=== PATIENT | female | born 1940 ===

== ENCOUNTER 2017-09-24 17:10 | Inpatient (IN) | payer MEDICARE, MEDICAID ==
[2017-09-24 17:11] VITALS: BMI 26.7
--- NOTE | 2017-09-24 18:02 | ED PDOC ---
HPI: Altered Mental Status Time Seen by Provider: 09/24/17 17:27 Chief Complaint (Nursing): Weakness/Neurological Deficit Chief Complaint (Provider): Weakness History Per: Patient History/Exam Limitations: None Onset/Duration Of Symptoms: Days (1) Current Symptoms Are (Timing): Still Present Description Of Symptoms: Not At Baseline Usual Baseline: Alert Oriented Exacerbating Factor(s): Unknown Character Of Deficits: Left: Weakness, Right: Weakness, Arm: Weakness, Leg: Weakness Decreased Ability To: Stand, Walk Severity: Mild Pain Scale Rating Of: 0 Additional History Per: Patient Associated Symptoms: Weakness. denies: Fever, Chills, Sweating, Chest Pain, Neck Pain, Back Pain, Headache, Seizure, Disoriented, Confused, Agitated, Trouble Concentrating, Trouble Thinking, Not Eating, Not Drinking, Vomiting, Diarrhea, Dyspnea, Incontinence, Syncope, Combative, Falling, Unable To: Additional Complaint(s): This is a 76 yo female with PMH of HTN, Hypothyrodism, Osteoporisis, colitis present today due to weakness that started this morning, PT state that the weakeness started on her left leg while she was in the urinal, and then she felt it in all her body. Pt state that its symmetrical and on upper and lower limbs. Pt state she is also having urinary retention for the past week. Pt sate the doctor change her thyriod medication las month. Pt denies dizzines, headache , loss of sensation, los of motor movement, change in vision, Nausea, vomiting, chest pain, SOB, abdominal pain, diarrhea, poluria, dysuria, or any other finding Past Medical History Reviewed: Historical Data, Nursing Documentation, Vital Signs Vital Signs: Last Vital Signs Temp 95 F L 09/24/17 17:16 Pulse 62 09/24/17 17:16 Resp 18 09/24/17 17:16 BP 143/73 09/24/17 17:16 Pulse Ox 96 09/24/17 17:16 - Medical History PMH: Arthritis, Asthma, HTN, Osteoporosis Denies: Diabetes, Hypercholesterolemia, Chronic Kidney Disease - Surgical History Surgical History: Back Surgery, Cholecystectomy - Family History Family History: States: Unknown Family Hx - Living Arrangements Living Arrangements: Alone - Social History Current smoker - smoking cessation education provided: No Ex-Smoker (has not smoked in the last 12 months): No Alcohol: None - Home Medications Home Medications: Ambulatory Orders Medication Instructions Recorded Acetaminophen/Oxycodone Hydr 1 tab PO TID PRN #6 tab 11/16/13 [Percocet 325 mg-5 mg] Meloxicam 15 mg PO PRN 11/16/13 Patient's Own Injectable 11/16/13 [Patient's Own Injectable] Ranitidine HCl [Ranitidine] PO BID 11/16/13 Tramadol Hydrochloride [Tramadol] 50 mg PO DAILY 11/16/13 amLODIPine [Norvasc] 10 mg PO DAILY 11/16/13 - Allergies Allergies/Adverse Reactions: Allergies Allergy/AdvReac Type Severity Reaction Status Date / Time Penicillins Allergy SWELLING Verified 09/24/17 17:16 Review of Systems ROS Statement: Except As Marked, All Systems Reviewed And Found Negative Constitutional: Positive for: Weakness. Negative for: Fever, Chills, Sweats Cardiovascular: Positive for: Palpitations. Negative for: Chest Pain Respiratory: Negative for: Shortness of Breath, SOB with Exertion Gastrointestinal: Negative for: Nausea, Vomiting, Abdominal Pain, Diarrhea Genitourinary Female: Positive for: Other (urin retention). Negative for: Dysuria, Frequency Neurological: Positive for: Weakness. Negative for: Numbness, Incoordination, Change in Speech, Confusion, Seizures, Altered Mental Status, Dizziness Psych: Negative for: Anxiety, Depression Physical Exam - Reviewed Nursing Documentation Reviewed: Yes Vital Signs Reviewed: Yes - Physical Exam Appears: Positive for: Well, Non-toxic, No Acute Distress Head Exam: Positive for: ATRAUMATIC, NORMAL INSPECTION, NORMOCEPHALIC Skin: Positive for: Normal Color, Dry Eye Exam: Positive for: Other (strabismo on R eye ) Neck: Positive for: Normal Cardiovascular/Chest: Positive for: Regular Rate, Rhythm Respiratory: Positive for: Normal Breath Sounds. 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 Issa Disposition - Disposition Forms: [employer] ([place])
[2017-09-24 19:08] LABS: BASO # 0.1 K/uL (0.0-0.2); BASO % 0.7 % (0.0-2.0); EOS # 0.4 K/uL (0.0-0.7); HEMOGLOBIN 13.6 g/dL (12.0-16.0); LYMPH # 1.9 K/uL (1.0-4.3); LYMPH % 21.2 % (20.0-40.0); MEAN CELL VOLUME 87.5 fl (81.0-99.0); MEAN CORPUSCULAR HEMOGLOBIN 28.9 pg (27.0-31.0); MEAN CORPUSCULAR HGB CONC 33.1 g/dL (33.0-37.0); MEAN PLATELET VOLUME 9.4 fl (7.2-11.7); MONO # 0.8 K/uL (0.0-0.8); MONO % 8.8 % (0.0-10.0); NEUT # 5.8 K/uL (1.8-7.0); NEUT % 65.3 % (50.0-75.0); RBC 4.69 Mil/uL (3.80-5.20); RED CELL DISTRIBUTION WIDTH 14.8 % (11.5-14.5)
[2017-09-24 19:41] LABS: CALCIUM 8.8 mg/dL (8.4-10.2); GFR AFRICAN-AMERICAN > 60; GFR NON-AFRICAN AMERICAN > 60
[2017-09-24 20:16] LABS: ALB/GLOB RATIO 1.1 (1.0-2.1); ALBUMIN 4.4 g/dL (3.5-5.0); ALT/SGPT 8 U/L (9-52); AST/SGOT 81 U/L (14-36); BLOOD UREA NITROGEN 15 mg/dl (7-17)
[2017-09-24 20:29] LABS: SQUAMOUS EPITHIAL < 1 /hpf (0-5); URINE BILIRUBIN NEGATIVE (NEGATIVE); URINE BLOOD NEGATIVE (NEGATIVE); URINE CLARITY CLEAR (Clear); URINE COLOR STRAW (YELLOW); URINE GLUCOSE (UA) NEG (Normal); URINE LEUKOCYTE ESTERASE NEG Leu/uL (Negative); URINE PROTEIN NEGATIVE (NEGATIVE); URINE UROBILINOGEN 0.2-1.0 mg/dL (0.2-1.0)
[2017-09-25] MEDS ORDERED: Albuterol HFA 90 mcg/actuation (8 g) INH PRN (06:27)
[2017-09-25 08:03] LABS: BASO % 0.5 % (0.0-2.0); EOS # 0.6 K/uL (0.0-0.7); EOS % 7.4 % (0.0-4.0); HEMOGLOBIN 12.9 g/dL (12.0-16.0); LYMPH # 2.4 K/uL (1.0-4.3); LYMPH % 30.4 % (20.0-40.0); MEAN CELL VOLUME 87.3 fl (81.0-99.0); MEAN CORPUSCULAR HEMOGLOBIN 29.2 pg (27.0-31.0); MEAN CORPUSCULAR HGB CONC 33.4 g/dL (33.0-37.0); MEAN PLATELET VOLUME 9.4 fl (7.2-11.7); MONO # 0.8 K/uL (0.0-0.8); MONO % 10.3 % (0.0-10.0); NEUT # 4.2 K/uL (1.8-7.0); NEUT % 51.4 % (50.0-75.0); NRBC % 0.2 % (0.0-0.0); RBC 4.42 Mil/uL (3.80-5.20); RED CELL DISTRIBUTION WIDTH 14.6 % (11.5-14.5); WHITE BLOOD COUNT 8.1 K/uL (4.8-10.8)
--- NOTE | 2017-09-25 08:07 | CP.PCM.HP ---
History of Present Illness - History of Present Illness History of Present Illness: pt admitted for weakness and diffuse joint pain. has h/o osteoporosis and OA. no f/c, n/v/d. no cough/congestion. all bw noted. pending final ct head report. nocp, dyspnea, headache. Present on Admission - Present on Admission Any Indicators Present on Admission: No Review of Systems - Musculoskeletal Musculoskeletal: As Per HPI, Arthralgias - Neurological Neurological: As Per HPI, Weakness Past Patient History - Past Medical History & Family History Past Medical History?: Yes - Past Social History Smoking Status: Never Smoked - CARDIAC Hx Cardiac Disorders: Yes Hx Hypercholesterolemia: No Hx Hypertension: Yes - PULMONARY Hx Respiratory Disorders: Yes Hx Asthma: Yes - NEUROLOGICAL Hx Neurological Disorder: No - HEENT Hx HEENT Problems: Yes Other/Comment: RIGHT EYE TENDON INVERTION - RENAL Hx Chronic Kidney Disease: No - ENDOCRINE/METABOLIC Hx Endocrine Disorders: No - HEMATOLOGICAL/ONCOLOGICAL Hx Blood Disorders: No - INTEGUMENTARY Hx Dermatological Problems: No - MUSCULOSKELETAL/RHEUMATOLOGICAL Hx Musculoskeletal Disorders: No Hx Falls: No - GASTROINTESTINAL Hx Gastrointestinal Disorders: No - GENITOURINARY/GYNECOLOGICAL Hx Genitourinary Disorders: No - PSYCHIATRIC Hx Psychophysiologic Disorder: No Hx Substance Use: No - SURGICAL HISTORY Hx Surgeries: Yes Hx Cholecystectomy: Yes - ANESTHESIA Hx Anesthesia: Yes Hx Anesthesia Reactions: No Hx Malignant Hyperthermia: No Meds Allergies/Adverse Reactions: Allergies Allergy/AdvReac Type Severity Reaction Status Date / Time Penicillins Allergy SWELLING Verified 09/24/17 17:16 Physical Exam - Constitutional Appears: Non-toxic, No Acute Distress, Chronically Ill - Head Exam Head Exam: ATRAUMATIC, NORMAL INSPECTION, NORMOCEPHALIC - Eye Exam Eye Exam: EOMI, Normal appearance, PERRL Pupil Exam: NORMAL ACCOMODATION, PERRL - ENT Exam ENT Exam: Mucous Membranes Moist, Normal Exam - Neck Exam Neck exam: Positive for: Normal Inspection - Respiratory Exam Respiratory Exam: Clear to Auscultation Bilateral, NORMAL BREATHING PATTERN - Cardiovascular Exam Cardiovascular Exam: REGULAR RHYTHM, RRR, +S1, +S2 - GI/Abdominal Exam GI & Abdominal Exam: Normal Bowel Sounds, Soft. absent: Tenderness - Extremities Exam Extremities exam: Positive for: full ROM, normal capillary refill, normal inspection, pedal pulses present - Back Exam Back exam: NORMAL INSPECTION - Neurological Exam Neurological exam: Abnormal Gait, Alert, CN II-XII Intact, Oriented x3, Reflexes Normal - Psychiatric Exam Psychiatric exam: Normal Affect, Normal Mood - Skin Skin Exam: Dry, Intact, Normal Color, Warm Results - Vital Signs Recent Vital Signs: Last Vital Signs Temp 98.4 F 09/25/17 00:59 Pulse 66 09/25/17 00:59 Resp 18 09/25/17 00:59 BP 118/72 09/25/17 00:59 Pulse Ox 98 09/25/17 00:59 - Labs Result Diagrams: 09/24/17 19:03 09/24/17 19:03 Labs: Laboratory Results - last 24 hr 09/24/17 09/24/17 09/24/17 18:44 19:03 19:03 WBC 9.0 RBC 4.69 Hgb 13.6 Hct 41.0 MCV 87.5 D MCH 28.9 MCHC 33.1 RDW 14.8 H Plt Count 299 MPV 9.4 Neut % (Auto) 65.3 Lymph % (Auto) 21.2 [place] % (Auto) 8.8 Eos % (Auto) 4.0 Baso % (Auto) 0.7 Neut # (Auto) 5.8 Lymph # (Auto) 1.9 [place] # (Auto) 0.8 Eos # (Auto) 0.4 Baso # (Auto) 0.1 Sodium 143 Potassium 4.3 Chloride 105 Carbon Dioxide 29 Anion Gap 13 BUN 15 Creatinine 0.3 L Est GFR ( Amer) > 60 Est GFR (Non-Af Amer) > 60 POC Glucose (mg/dL) 78 Random Glucose 83 Calcium 8.8 Total Bilirubin 1.0 AST 81 H ALT 8 L D Alkaline Phosphatase 88 Total Protein 8.4 H Albumin 4.4 Globulin 4.0 H Albumin/Globulin Ratio 1.1 TSH 3rd Generation 0.89 Urine Color Urine Clarity Urine pH Ur Specific [place] Urine Protein Urine Glucose (UA) Urine Ketones Urine Blood Urine Nitrate Urine Bilirubin Urine Urobilinogen Ur Leukocyte Esterase Urine RBC (Auto) Ur Squamous Epith Cells 09/24/17 20:21 WBC RBC Hgb Hct MCV MCH MCHC RDW Plt Count MPV Neut % (Auto) Lymph % (Auto) [place] % (Auto) Eos % (Auto) Baso % (Auto) Neut # (Auto) Lymph # (Auto) [place] # (Auto) Eos # (Auto) Baso # (Auto) Sodium Potassium Chloride Carbon Dioxide Anion Gap BUN Creatinine Est GFR ( Amer) Est GFR (Non-Af Amer) POC Glucose (mg/dL) Random Glucose Calcium Total Bilirubin AST ALT Alkaline Phosphatase Total Protein Albumin Globulin Albumin/Globulin Ratio TSH 3rd Generation Urine Color Straw Urine Clarity Clear Urine pH 8.0 Ur Specific [place] 1.009 Urine Protein Negative Urine Glucose (UA) Neg Urine Ketones Trace Urine Blood Negative Urine Nitrate Negative Urine Bilirubin Negative Urine Urobilinogen 0.2-1.0 Ur Leukocyte Esterase Neg Urine RBC (Auto) < 1 Ur Squamous Epith Cells < 1 Assessment & Plan (1) Weakness Assessment and Plan: pt/ot moniotr bw f/u head ct sergio?? Status: Acute (2) DVT prophylaxis Assessment and Plan: scd nad aeh ose ambulation lovenox if admitted over 24h Status: Acute Decision To Admit - Pt Status Changed To: Hospital Disposition Of: Inpatient - Admit Certification Admit to Inpatient:: After my assessment, the patient will require hospitalization for at least two midnights. This is because of the severity of symptoms shown, intensity of services needed, and/or the medical risk in this patient being treated as an outpatient. - . Bed Request Type: Med/Surg Admitting Physician: Cherelle Gerber
[2017-09-25] MEDS: Naproxen 500 MG TAB PO SCH ×2 (09:00→16:47)
--- NOTE | 2017-09-25 09:18 | CT ---
PROCEDURE: CT HEAD WITHOUT CONTRAST. HISTORY: Generalized weakness, lightheadedness COMPARISON: CT head dated 11/08/2013. TECHNIQUE: Axial computed tomography images were obtained through the head/brain without intravenous contrast. Radiation dose: Total exam DLP = 1273.4 mGy-cm. This CT exam was performed using one or more of the following dose reduction techniques: Automated exposure control, adjustment of the mA and/or kV according to patient size, and/or use of iterative reconstruction technique. FINDINGS: HEMORRHAGE: No intracranial hemorrhage. BRAIN: No mass effect or edema. Mild atrophy. Mild chronic microvascular ischemic changes. VENTRICLES: Mildly prominent. No hydrocephalus. CALVARIUM: Unremarkable. PARANASAL SINUSES: Unremarkable as visualized. Bilateral diana bullosa. No significant inflammatory changes. MASTOID AIR CELLS: Unremarkable as visualized. No inflammatory changes. OTHER FINDINGS: None. IMPRESSION: No acute intracranial pathology. Age-related changes.
[2017-09-25 09:35] LABS: ALB/GLOB RATIO 1.1 (1.0-2.1); ALBUMIN 3.8 g/dL (3.5-5.0); ALT/SGPT 20 U/L (9-52); AST/SGOT 25 U/L (14-36); BLOOD UREA NITROGEN 12 mg/dl (7-17); CALCIUM 8.3 mg/dL (8.4-10.2); GFR AFRICAN-AMERICAN > 60; GFR NON-AFRICAN AMERICAN > 60
[2017-09-25] MEDS ORDERED: Potassium Chloride 20 mEq ER Tab PO ONE (10:22)
[2017-09-25] MEDS: Pantoprazole 40 mg EC Tab PO SCH (13:39)
[2017-09-26] MEDS: Levothyroxine 50 MCG TAB PO SCH (05:49)
[2017-09-26 07:51] LABS: BASO % 0.4 % (0.0-2.0); EOS # 0.7 K/uL (0.0-0.7); EOS % 6.8 % (0.0-4.0); LYMPH # 2.6 K/uL (1.0-4.3); MEAN CORPUSCULAR HGB CONC 33.4 g/dL (33.0-37.0); MONO % 10.4 % (0.0-10.0); NEUT # 5.4 K/uL (1.8-7.0); NEUT % 55.4 % (50.0-75.0); RBC 4.48 Mil/uL (3.80-5.20); RED CELL DISTRIBUTION WIDTH 14.6 % (11.5-14.5); WHITE BLOOD COUNT 9.7 K/uL (4.8-10.8)
[2017-09-26 08:13] LABS: ALB/GLOB RATIO 1.1 (1.0-2.1); ALBUMIN 3.7 g/dL (3.5-5.0); ALT/SGPT 17 U/L (9-52); AST/SGOT 27 U/L (14-36); BLOOD UREA NITROGEN 23 mg/dl (7-17); CALCIUM 8.4 mg/dL (8.4-10.2); GFR AFRICAN-AMERICAN > 60; GFR NON-AFRICAN AMERICAN > 60
[2017-09-26] MEDS: Naproxen 500 MG TAB PO SCH ×2 (08:36→16:34)
[2017-09-26] MEDS: Pantoprazole 40 mg EC Tab PO SCH (08:37)
--- NOTE | 2017-09-26 09:59 | CP.PCM.PN ---
Subjective - Date & Time of Evaluation Date of Evaluation: 09/26/17 Time of Evaluation: 09:58 - Subjective Subjective: pt doing well. no complaints. pain controlled w/ po meds. 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 Objective - Vital Signs/Intake and Output Vital Signs (last 24 hours): Temp Pulse Resp BP Pulse Ox 97.3 F L 74 20 119/69 98 09/26/17 08:12 09/26/17 08:37 09/26/17 08:12 09/26/17 08:37 09/26/17 08:12 - Medications Medications: Current Medications Acetaminophen (Tylenol 325mg Tab) 325 mg PO Q6 PRN PRN Reason: Pain, Mild (1-3) Last Admin: 09/26/17 05:48 Dose: 325 mg Albuterol (Ventolin Hfa 90 Mcg/Actuation (8 G)) 1 puff INH Q4 PRN PRN Reason: Wheezing Amlodipine Besylate (Norvasc) 10 mg PO DAILY [facility] Last Admin: 09/26/17 08:37 Dose: 10 mg Famotidine (Pepcid) 20 mg PO BID [facility] Last Admin: 09/26/17 08:37 Dose: 20 mg Famotidine (Pepcid) 20 mg PO DAILY [facility] Last Admin: 09/26/17 08:38 Dose: Not Given Levothyroxine Sodium (Synthroid) 50 mcg PO DAILY@0630 [facility] Last Admin: 09/26/17 05:49 Dose: 50 mcg Mesalamine (Delzicol Dr) 1,200 mg PO DAILY [facility] Last Admin: 09/26/17 08:36 Dose: 1,200 mg Naproxen (Naproxen) 500 mg PO BID [facility] Last Admin: 09/26/17 08:36 Dose: 500 mg Pantoprazole Sodium (Protonix Ec Tab) 40 mg PO DAILY [facility] Last Admin: 09/26/17 08:37 Dose: 40 mg - Labs Labs: 09/26/17 05:30 09/26/17 05:30 - Constitutional Appears: Well, Non-toxic, No Acute Distress - Head Exam Head Exam: ATRAUMATIC, NORMAL INSPECTION, NORMOCEPHALIC - Eye Exam Eye Exam: EOMI, Normal appearance, PERRL Pupil Exam: NORMAL ACCOMODATION, PERRL - ENT Exam ENT Exam: Mucous Membranes Moist, Normal Exam - Neck Exam Neck Exam: Full ROM, Normal Inspection. absent: Lymphadenopathy - Respiratory Exam Respiratory Exam: Clear to Ausculation Bilateral, NORMAL BREATHING PATTERN - Cardiovascular Exam Cardiovascular Exam: REGULAR RHYTHM, +S1, +S2. absent: Murmur - GI/Abdominal Exam GI & Abdominal Exam: Soft, Normal Bowel Sounds. absent: Tenderness - Extremities Exam Extremities Exam: Full ROM, Normal Capillary Refill, Normal Inspection. absent : Joint Swelling, Pedal Edema - Back Exam Back Exam: NORMAL INSPECTION - Neurological Exam Neurological Exam: Alert, Awake, CN II-XII Intact, Normal Gait, Oriented x3 - Psychiatric Exam Psychiatric exam: Normal Affect, Normal Mood - Skin Skin Exam: Dry, Intact, Normal Color, Warm Assessment and Plan (1) Weakness Status: Acute (2) DVT prophylaxis Status: Acute - Assessment and Plan (Free Text) Assessment: (1) Weakness Assessment and Plan: pt/ot moniotr bw f/u head ct sergio?? pt refusingas ofnow Status: Acute (2) DVT prophylaxis Assessment and Plan: scd nad aeh ose ambulation lovenox if admitted over 24h Status: Acute
[2017-09-27 01:09] VITALS: RESP 18
[2017-09-27] MEDS: Levothyroxine 50 MCG TAB PO SCH (05:48)
--- NOTE | 2017-09-27 07:48 | CP.PCM.PN ---
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 [facility] Objective - Vital Signs/Intake and Output Vital Signs (last 24 hours): Temp Pulse Resp BP Pulse Ox 97.7 F 60 18 111/69 97 09/27/17 00:00 09/27/17 00:00 09/27/17 00:00 09/27/17 00:00 09/27/17 00:00 - Medications Medications: Current Medications Acetaminophen (Tylenol 325mg Tab) 325 mg PO Q6 PRN PRN Reason: Pain, Mild (1-3) Last Admin: 09/26/17 22:42 Dose: 325 mg Albuterol (Ventolin Hfa 90 Mcg/Actuation (8 G)) 1 puff INH Q4 PRN PRN Reason: Wheezing Amlodipine Besylate (Norvasc) 10 mg PO DAILY [facility] Last Admin: 09/26/17 08:37 Dose: 10 mg Famotidine (Pepcid) 20 mg PO BID [facility] Last Admin: 09/26/17 16:35 Dose: 20 mg Famotidine (Pepcid) 20 mg PO DAILY [facility] Last Admin: 09/26/17 08:38 Dose: Not Given Levothyroxine Sodium (Synthroid) 50 mcg PO DAILY@0630 [facility] Last Admin: 09/27/17 05:48 Dose: 50 mcg Mesalamine (Delzicol Dr) 1,200 mg PO DAILY [facility] Last Admin: 09/26/17 08:36 Dose: 1,200 mg Naproxen (Naproxen) 500 mg PO BID [facility] Last Admin: 09/26/17 16:34 Dose: 500 mg Pantoprazole Sodium (Protonix Ec Tab) 40 mg PO DAILY [facility] Last Admin: 09/26/17 08:37 Dose: 40 mg - Labs Labs: 09/26/17 05:30 09/26/17 05:30 - Constitutional Appears: Well, Non-toxic, No Acute Distress - Head Exam Head Exam: ATRAUMATIC, NORMAL INSPECTION, NORMOCEPHALIC - Eye Exam Eye Exam: EOMI, Normal appearance, PERRL Pupil Exam: NORMAL ACCOMODATION, PERRL - ENT Exam ENT Exam: Mucous Membranes Moist, Normal Exam - Neck Exam Neck Exam: Full ROM, Normal Inspection. absent: Lymphadenopathy - Respiratory Exam Respiratory Exam: Clear to Ausculation Bilateral, NORMAL BREATHING PATTERN - Cardiovascular Exam Cardiovascular Exam: REGULAR RHYTHM, RRR, +S1, +S2. absent: Murmur - GI/Abdominal Exam GI & Abdominal Exam: Soft, Normal Bowel Sounds. absent: Tenderness - Extremities Exam Extremities Exam: Full ROM, Normal Capillary Refill, Normal Inspection. absent : Joint Swelling, Pedal Edema - Back Exam Back Exam: NORMAL INSPECTION - Neurological Exam Neurological Exam: Abnormal Gait, Alert, Awake, CN II-XII Intact, Oriented x3 - Psychiatric Exam Psychiatric exam: Normal Affect, Normal Mood - Skin Skin Exam: Dry, Intact, Normal Color, Warm Assessment and Plan (1) Weakness Status: Acute (2) DVT prophylaxis Status: Acute - Assessment and Plan (Free Text) Assessment: (1) Weakness Assessment and Plan: pt/ot moniotr bw f/u head ct sergio?? pt refusingas ofnow Status: Acute (2) DVT prophylaxis Assessment and Plan: scd nad aeh ose ambulation lovenox if admitted over 24h Status: Acute 3-unsteady gait-pt has appliances/crutches at home. requesting to go home instead of sergio/tcu sw/cm to follow
[2017-09-27 08:02] VITALS: BP 146/74; PULSE 56; TEMP 97.8; O2SAT 100
[2017-09-27] MEDS: Naproxen 500 MG TAB PO SCH (09:09)
[2017-09-27] MEDS: Pantoprazole 40 mg EC Tab PO SCH (09:10)
--- NOTE | 2017-09-27 10:23 | CARD ---
APPROVED REPORT EKG Measurement Heart [id number] <Conclusion> Sinus bradycardia Moderate voltage criteria for LVH, may be normal variant Borderline ECG
--- NOTE | 2017-09-27 13:23 | CP.PCM.CON ---
History of Present Illness - History of Present Illness History of Present Illness: 76 yr old woman who was born with spina bifida, now admitted for weakness and diffuse joint pain. She has a pmh of osteoporosis and osteoarthritis. TOday, MIss hair states that she has no headache,no weakness, no nausea, no vomiting, no difficulty finding words. There are no other complaints. She does not see a neurologist. PMH/PSH: as above. FH/SH: as above. Has good family support. ALl: nkda. on exam: aaox3. 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 eomi. cn 2-12 normal. lower limbs are atrophied and small for size. Profound lower limb weakness at 2/5 bilaterally. upper limbs 5/5. Reflexes are +2 ul and ll bl. toes downgoing. no clonus. patient does not walk but needs a walker. MMS: Past Patient History - Past Medical History & Family History Past Medical History?: Yes - Past Social History Smoking Status: Never Smoked - CARDIAC Hx Cardiac Disorders: Yes Hx Hypercholesterolemia: No Hx Hypertension: Yes - PULMONARY Hx Respiratory Disorders: Yes Hx Asthma: Yes - NEUROLOGICAL Hx Neurological Disorder: No - HEENT Hx HEENT Problems: Yes Other/Comment: RIGHT EYE TENDON INVERTION - RENAL Hx Chronic Kidney Disease: No - ENDOCRINE/METABOLIC Hx Endocrine Disorders: No - HEMATOLOGICAL/ONCOLOGICAL Hx Blood Disorders: No - INTEGUMENTARY Hx Dermatological Problems: No - MUSCULOSKELETAL/RHEUMATOLOGICAL Hx Musculoskeletal Disorders: No Hx Falls: No - GASTROINTESTINAL Hx Gastrointestinal Disorders: No - GENITOURINARY/GYNECOLOGICAL Hx Genitourinary Disorders: No - PSYCHIATRIC Hx Psychophysiologic Disorder: No Hx Substance Use: No - SURGICAL HISTORY Hx Surgeries: Yes Hx Cholecystectomy: Yes - ANESTHESIA Hx Anesthesia: Yes Hx Anesthesia Reactions: No Hx Malignant Hyperthermia: No Meds Home Medications: Home Medication List Medication Instructions Recorded Confirmed Type Famotidine [Pepcid] 20 mg PO BID #60 tab 09/27/17 Rx Allergies/Adverse Reactions: Allergies Allergy/AdvReac Type Severity Reaction Status Date / Time Penicillins Allergy SWELLING Verified 09/24/17 17:16 - Medications Medications: Current Medications Acetaminophen (Tylenol 325mg Tab) 325 mg PO Q6 PRN PRN Reason: Pain, Mild (1-3) Last Admin: 09/26/17 22:42 Dose: 325 mg Albuterol (Ventolin Hfa 90 Mcg/Actuation (8 G)) 1 puff INH Q4 PRN PRN Reason: Wheezing Amlodipine Besylate (Norvasc) 10 mg PO DAILY [facility] Last Admin: 09/27/17 09:09 Dose: 10 mg Famotidine (Pepcid) 20 mg PO BID [facility] Last Admin: 09/27/17 09:10 Dose: 20 mg Famotidine (Pepcid) 20 mg PO DAILY [facility] Last Admin: 09/27/17 09:10 Dose: Not Given Levothyroxine Sodium (Synthroid) 50 mcg PO DAILY@0630 [facility] Last Admin: 09/27/17 05:48 Dose: 50 mcg Mesalamine (Delzicol Dr) 1,200 mg PO DAILY [facility] Last Admin: 09/27/17 09:09 Dose: 1,200 mg Naproxen (Naproxen) 500 mg PO BID [facility] Last Admin: 09/27/17 09:09 Dose: 500 mg Pantoprazole Sodium (Protonix Ec Tab) 40 mg PO DAILY [facility] Last Admin: 09/27/17 09:10 Dose: 40 mg Results - Vital Signs Recent Vital Signs: Last Vital Signs Temp 97.8 F 09/27/17 08:01 Pulse 56 L 09/27/17 09:09 Resp 18 09/27/17 08:01 BP 146/74 09/27/17 09:09 Pulse Ox 100 09/27/17 08:01 - Labs Result Diagrams: 09/26/17 05:30 09/26/17 05:30 Assessment & Plan - Assessment and Plan (Free Text) Assessment: 76 yr old woman with spina bifida who is now stable with no neurological complaints. Plan: 1. Discharge home with neurology follow up. Thank you Dr. breen
--- NOTE | 2017-09-27 15:50 | CP.PCM.DIS ---
Provider - Provider Date of Admission: 09/24/17 20:50 Attending physician: Cherelle Gerber MD Time Spent in preparation of Discharge (in minutes): 15 Diagnosis - Discharge Diagnosis (1) Weakness Status: Acute (2) DVT prophylaxis Status: Acute Hospital Course - Lab Results Lab Results: Most Recent Lab Values WBC 9.7 K/uL (4.8-10.8) 09/26/17 05:30 RBC 4.48 Mil/uL (3.80-5.20) 09/26/17 05:30 Hgb 13.0 g/dL (12.0-16.0) 09/26/17 05:30 Hct 39.0 % (34.0-47.0) 09/26/17 05:30 MCV 87.0 fl (81.0-99.0) 09/26/17 05:30 MCH 29.0 pg (27.0-31.0) 09/26/17 05:30 MCHC 33.4 g/dL (33.0-37.0) 09/26/17 05:30 RDW 14.6 % (11.5-14.5) H 09/26/17 05:30 Plt Count 266 K/uL (130-400) 09/26/17 05:30 MPV 10.0 fl (7.2-11.7) 09/26/17 05:30 Neut % (Auto) 55.4 % (50.0-75.0) 09/26/17 05:30 Lymph % (Auto) 27.0 % (20.0-40.0) 09/26/17 05:30 Teller % (Auto) 10.4 % (0.0-10.0) H 09/26/17 05:30 Eos % (Auto) 6.8 % (0.0-4.0) H 09/26/17 05:30 Baso % (Auto) 0.4 % (0.0-2.0) 09/26/17 05:30 Neut # (Auto) 5.4 K/uL (1.8-7.0) 09/26/17 05:30 Lymph # (Auto) 2.6 K/uL (1.0-4.3) 09/26/17 05:30 Teller # (Auto) 1.0 K/uL (0.0-0.8) H 09/26/17 05:30 Eos # (Auto) 0.7 K/uL (0.0-0.7) 09/26/17 05:30 Baso # (Auto) 0.0 K/uL (0.0-0.2) 09/26/17 05:30 Sodium 140 mmol/l (132-148) 09/26/17 05:30 Potassium 4.1 MMOL/L (3.6-5.0) 09/26/17 05:30 Chloride 105 mmol/L (98-107) 09/26/17 05:30 Carbon Dioxide 25 mmol/L (22-30) 09/26/17 05:30 Anion Gap 14 (10-20) 09/26/17 05:30 BUN 23 mg/dl (7-17) H 09/26/17 05:30 Creatinine 0.3 mg/dl (0.7-1.2) L 09/26/17 05:30 Est GFR ( Amer) > 60 09/26/17 05:30 Est GFR (Non-Af Amer) > 60 09/26/17 05:30 POC Glucose (mg/dL) 78 mg/dL (65-110) 09/24/17 18:44 Random Glucose 89 mg/dL (65-105) 09/26/17 05:30 Calcium 8.4 mg/dL (8.4-10.2) 09/26/17 05:30 Total Bilirubin 0.9 mg/dl (0.2-1.3) 09/26/17 05:30 AST 27 U/L (14-36) 09/26/17 05:30 ALT 17 U/L (9-52) 09/26/17 05:30 Alkaline Phosphatase 61 U/L (38-126) 09/26/17 05:30 Total Protein 7.1 G/DL (6.3-8.2) 09/26/17 05:30 Albumin 3.7 g/dL (3.5-5.0) 09/26/17 05:30 Globulin 3.5 gm/dL (2.2-3.9) 09/26/17 05:30 Albumin/Globulin Ratio 1.1 (1.0-2.1) 09/26/17 05:30 TSH 3rd Generation 0.89 mIU/ML (0.46-4.68) 09/24/17 19:03 Urine Color Straw (YELLOW) 09/24/17 20:21 Urine Clarity Clear (Clear) 09/24/17 20:21 Urine pH 8.0 (5.0-8.0) 09/24/17 20:21 Ur Specific [place] 1.009 (1.003-1.030) 09/24/17 20:21 Urine Protein Negative mg/dL (NEGATIVE) 09/24/17 20:21 Urine Glucose (UA) Neg mg/dL (Normal) 09/24/17 20:21 Urine Ketones Trace mg/dL (NEGATIVE) 09/24/17 20:21 Urine Blood Negative (NEGATIVE) 09/24/17 20:21 Urine Nitrate Negative (NEGATIVE) 09/24/17 20:21 Urine Bilirubin Negative (NEGATIVE) 09/24/17 20:21 Urine Urobilinogen 0.2-1.0 mg/dL (0.2-1.0) 09/24/17 20:21 Ur Leukocyte Esterase Neg Nathaniel/uL (Negative) 09/24/17 20:21 Urine RBC (Auto) < 1 /hpf (0-3) 09/24/17 20:21 Ur Squamous Epith Cells < 1 /hpf (0-5) 09/24/17 20:21 - Hospital Course Hospital Course: pt/ot pt offered/refused PATRICIA neuro Discharge Exam - Head Exam Head Exam: ATRAUMATIC, NORMAL INSPECTION, NORMOCEPHALIC Discharge Plan - Discharge Medications Prescriptions: Famotidine [Pepcid] 20 mg PO BID #60 tab - Follow Up Plan Condition: STABLE Disposition: HOME/ ROUTINE Instructions: Generalized Weakness (DC) Additional Instructions: limit tramadol as much as possible. follow up at [facility] tomorrow am. neuro cleared pt f/u rmg, rted prn, meds per med rec final dx-weakness, unsteady gait, body aches. (all resolved) Referrals: José Luis Issa MD [Family Provider] - Janett Tristan MD [Medical Doctor] -
--- NOTE | 2017-09-27 15:51 | PQF ---
PROVIDER RESPONSE TEXT: Weakness r/t ?? Med side effect. No further c/o weakness after tramadol dc REVIEWER QUERY TEXT: Symptom Underlying Cause Please document the underlying diagnosis AFTER WORK-UP causing the patient?s documented symptom(s) of weakness and unsteady gait or whether those are insignificant or unable to be further specified. The patient's Clinical Indicators include: Admitted with c/o weakness and c/o urinary retention for the past week. States her MD changed her thy roid medication last month. ER MD: Weakness most likely due to Hypothyroid EKG: Sinus bradycardia , moderate voltage criteria for LVH may be normal variant. TSH 0.89 Treatment: Tylenol, Norvasc, Pepcid, Synthroid, Mesalamine DR, Naproxen, Protonix, Ventolin HFA prn, Query created by: Haylie Dudley on 09/27/2017 11:09 AM Electronically signed by: Dutch Infante APN 09/27/2017 3:48 PM
== END 2017-09-27 16:00 | disposition home or self-care (01) | DRG 948 ==
LOC: H.ER 17:10 → H.ERHOLD 20:50 → H.MEDSURG1 23:40
PROVIDERS: ADMIT Family Medicine; ATTEND Family Medicine
DX: R53.1 Weakness (principal); T40.4X5A Adverse effect of other synthetic narcotics, initial encounter; Z88.0 Allergy status to penicillin; I10 Essential (primary) hypertension; E03.9 Hypothyroidism, unspecified; M81.0 Age-related osteoporosis without current pathological fracture; J45.909 Unspecified asthma, uncomplicated; Q05.9 Spina bifida, unspecified; H50.9 Unspecified strabismus; R26.81 Unsteadiness on feet; R33.9 Retention of urine, unspecified; M25.50 Pain in unspecified joint; M19.90 Unspecified osteoarthritis, unspecified site

== ENCOUNTER 2017-11-27 18:26 | Inpatient (IN) | payer OTHER, MEDICAID ==
[2017-11-27 18:39] VITALS: BMI 24.0
[2017-11-27] MEDS ORDERED: Albuterol HFA 90 mcg/actuation (8 g) IH PRN (20:22)
[2017-11-28 08:25] VITALS: RESP 20
[2017-11-28] MEDS: Enoxaparin 40 mg Syringe SC SCH (08:41)
[2017-11-28] MEDS ORDERED: ACETAMINOPHEN 500 MG PO PRN (21:31)
--- NOTE | 2017-11-28 21:33 | CP.PCM.HP ---
History of Present Illness - History of Present Illness History of Present Illness: pt admitted to [facility] from [facility] after haivng near-syncope/weakness. doing well. no complaints at presnt. no f/c, n/v/d.chart form rust reviewed Present on Admission - Present on Admission Any Indicators Present on Admission: No Review of Systems - Neurological Neurological: As Per HPI, Weakness Past Patient History - Past Medical History & Family History Past Medical History?: Yes - Past Social History Smoking Status: Never Smoked - CARDIAC Hx Hypercholesterolemia: Yes Hx Hypertension: Yes - PULMONARY Hx Asthma: Yes - NEUROLOGICAL Hx Neurological Disorder: No - HEENT Hx HEENT Problems: Yes Other/Comment: RIGHT EYE TENDON INVERTION - RENAL Hx Chronic Kidney Disease: No - ENDOCRINE/METABOLIC Hx Endocrine Disorders: No Other/Comment: "THYROID" - HEMATOLOGICAL/ONCOLOGICAL Hx Blood Disorders: No Hx AIDS: No Hx Human Immunodeficiency Virus (HIV): No - INTEGUMENTARY Hx Dermatological Problems: No - MUSCULOSKELETAL/RHEUMATOLOGICAL Hx Arthritis: Yes Hx Falls: Yes Hx Osteoporosis: Yes - GASTROINTESTINAL Hx Gastritis: Yes - GENITOURINARY/GYNECOLOGICAL Hx Genitourinary Disorders: No - PSYCHIATRIC Hx Substance Use: No - SURGICAL HISTORY Hx Cholecystectomy: Yes - ANESTHESIA Hx Anesthesia: Yes Hx Anesthesia Reactions: No Hx Malignant Hyperthermia: No Meds Allergies/Adverse Reactions: Allergies Allergy/AdvReac Type Severity Reaction Status Date / Time Penicillins Allergy SWELLING Verified 11/27/17 18:38 Physical Exam - Constitutional Appears: Well, Non-toxic, No Acute Distress - Head Exam Head Exam: ATRAUMATIC, NORMAL INSPECTION, NORMOCEPHALIC - Eye Exam Eye Exam: EOMI, Normal appearance, PERRL Pupil Exam: NORMAL ACCOMODATION, PERRL - ENT Exam ENT Exam: Mucous Membranes Moist, Normal Exam - Neck Exam Neck exam: Positive for: Normal Inspection - Respiratory Exam Respiratory Exam: Clear to Auscultation Bilateral, NORMAL BREATHING PATTERN - Cardiovascular Exam Cardiovascular Exam: REGULAR RHYTHM, RRR, +S1, +S2 - GI/Abdominal Exam GI & Abdominal Exam: Normal Bowel Sounds, Soft. absent: Tenderness - Extremities Exam Extremities exam: Positive for: full ROM, normal capillary refill, normal inspection, pedal pulses present - Back Exam Back exam: NORMAL INSPECTION - Neurological Exam Neurological exam: Alert, CN II-XII Intact, Normal Gait, Oriented x3, Reflexes Normal - Psychiatric Exam Psychiatric exam: Normal Affect, Normal Mood - Skin Skin Exam: Dry, Intact, Normal Color, Warm Results - Vital Signs Recent Vital Signs: Last Vital Signs Temp 97.7 F 11/28/17 19:50 Pulse 60 11/28/17 19:50 Resp 20 11/28/17 19:50 BP 109/68 11/28/17 19:50 Pulse Ox 97 11/28/17 19:50 Assessment & Plan (1) DVT prophylaxis Assessment and Plan: scd and ae hose plavix Status: Acute (2) Near syncope Assessment and Plan: pt/ot cardio/neuro f/u Status: Acute (3) Weakness Assessment and Plan: pt/ot cardio/neuro Status: Acute Decision To Admit - Pt Status Changed To: Hospital Disposition Of: Inpatient - Admit Certification Admit to Inpatient:: After my assessment, the patient will require hospitalization for at least two midnights. This is because of the severity of symptoms shown, intensity of services needed, and/or the medical risk in this patient being treated as an outpatient. - . Bed Request Type: Transitional Care Unit Admitting Physician: Cherelle Gerber
--- NOTE | 2017-11-29 03:27 | CON ---
DATE: 11/28/2017 CARDIOLOGY CONSULTATION REASON FOR CONSULTATION: Sinus bradycardia. HISTORY OF PRESENT ILLNESS: The patient is a 76-year-old female who has childhood polio affecting both lower extremities. Has support for both lower extremities. Has a history of hypothyroidism and hypertension who was initially admitted to [facility] on 11/24/2017 because of near-syncopal episode. I did evaluate the patient at that time. The patient was noted to have sinus bradycardia in the 40s and 50s, and the patient did report palpitation. During telemetry monitoring, there were no sustained arrhythmia, and the lowest heart rate reported was around 45. An echocardiographic study was performed during that admission and revealed borderline concentric LVH with normal ejection fraction, [id number] aortic insufficiency. There was no interatrial shunt on the bubble study. The patient was admitted to [facility] yesterday. The patient denies any chest pain or dizziness at this time. SOCIAL HISTORY: Nonsmoker. Nondrinker. She lives by herself. She has no family except a sister who visits her occasionally. MEDICATIONS: The patient's current medications are Lipitor 20 mg once a day, Lovenox 40 mg subcutaneously once a day, Norvasc 10 mg once a day, Pepcid 20 mg twice a day orally, Plavix 75 mg once a day, Synthroid 50 mcg once a day, albuterol inhaler every 6 hours. REVIEW OF SYSTEMS: No nausea or vomiting. No fever or chills. PHYSICAL EXAMINATION: GENERAL: The patient is an elderly female who does not appear to be in acute distress. VITAL SIGNS: Blood pressure 118/67, heart rate 53, temperature 96.8, and respirations 20. HEENT: Normocephalic. CHEST: Clear. HEART: S1 and S2 are regular. ABDOMEN: Soft. EXTREMITIES: Bilateral old polio with significant atrophy and shortening of the lower extremities. LABORATORY DATA: The most recent hemoglobin and hematocrit two days ago were 12.3 and 36.5. White count and platelet count were within normal limit. The most recent SMA-7 on 11/26/2017: Sodium 141, potassium 4.3, chloride 102, CO2 of 31, glucose 124, BUN 15, and creatinine 0.4. EEG report was a normal study. Brain MRI done in the most recent admission revealed no acute intracranial abnormality, moderate chronic microangiopathic changes. 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 The right atrial artery likely continuous as hypoplastic basilar artery and the artery terminates in the left posterior inferior cerebral artery. ASSESSMENT: 1. Recent near-syncopal episode. 2. Mild sinus bradycardia. 3. Hypoplastic posterior cerebral circulation. 4. Hypertension. 5. Hyperlipidemia. 6. Old poliomyelitis affecting both lower extremities. RECOMMENDATIONS: Continue Lipitor 20 mg once a day, Lovenox 40 mg once a day, Norvasc 10 mg once a day, Plavix 75 mg once a day, Synthroid 50 mcg once a day. May follow up serum electrolytes as well as TSH level. Betito Garcia MD
[2017-11-29] MEDS: Levothyroxine 50 MCG TAB PO SCH (06:08)
[2017-11-29 06:50] LABS: HEMOGLOBIN 12.4 g/dL (12.0-16.0); MEAN CELL VOLUME 87.2 fl (81.0-99.0); MEAN CORPUSCULAR HEMOGLOBIN 29.1 pg (27.0-31.0); MEAN CORPUSCULAR HGB CONC 33.4 g/dL (33.0-37.0); RBC 4.24 Mil/uL (3.80-5.20); RED CELL DISTRIBUTION WIDTH 14.3 % (11.5-14.5); WHITE BLOOD COUNT 10.8 K/uL (4.8-10.8)
[2017-11-29 06:51] LABS: BASO % 0.3 % (0.0-2.0); EOS # 1.3 K/uL (0.0-0.7); EOS % 11.8 % (0.0-4.0); LYMPH # 1.9 K/uL (1.0-4.3); LYMPH % 17.5 % (20.0-40.0); MEAN PLATELET VOLUME 8.9 fl (7.2-11.7); MONO # 1.3 K/uL (0.0-0.8); MONO % 11.9 % (0.0-10.0); NEUT # 6.3 K/uL (1.8-7.0); NEUT % 58.5 % (50.0-75.0)
[2017-11-29 07:00] LABS: ALB/GLOB RATIO 1.1 (1.0-2.1); ALBUMIN 3.4 g/dL (3.5-5.0); ALT/SGPT 94 U/L (9-52); AST/SGOT 80 U/L (14-36); BLOOD UREA NITROGEN 21 mg/dl (7-17); CALCIUM 8.6 mg/dL (8.4-10.2); GFR NON-AFRICAN AMERICAN > 60
[2017-11-29] MEDS: Enoxaparin 40 mg Syringe SC SCH (08:47)
[2017-11-29] MEDS ORDERED: MELOXICAM 15 MG PO SCH (09:00)
[2017-11-29] MEDS ORDERED: Patient's Own Med (Omeprazole [Omeprazole] 40 MG) PO SCH (09:00)
[2017-11-29] MEDS ORDERED: RANITIDINE HCL 300 MG PO SCH (09:00)
[2017-11-29] MEDS: Pantoprazole 40 mg EC Tab PO SCH (09:02)
--- NOTE | 2017-11-29 20:53 | PN ---
DATE: 11/29/2017 SUBJECTIVE: The patient denies dizziness at this time. No chest pain. PHYSICAL EXAMINATION: VITAL SIGNS: Blood pressure 139/74, heart rate 57, temperature 98.2, and respirations 20. HEENT: Head normocephalic. CHEST: Clear. HEART: S1, S2 regular. EXTREMITIES: No pedal edema. LABORATORY DATA: SMA-7; sodium 140, potassium 4.4, chloride 107, CO2 of 30, glucose 89, BUN 21, creatinine 0.4. AST and ALT are elevated at 80 and 94 respectively. CBC: WBC 10.8, hemoglobin 12.4, hematocrit 37, platelet count 178,000. ASSESSMENT: 1. Sinus bradycardia. 2. Near syncopal episode. 3. Old poliomyelitis. 4. Hypothyroidism. 5. Hypoplastic posterior cerebral circulation. RECOMMENDATIONS: Continue Lipitor at 20 mg once a day, Lovenox 40 mg subcutaneously once a day, Norvasc 10 mg once a day, Plavix 75 mg once a day, Synthroid 50 mcg orally once a day. Obtain 12-lead EKG. Betito Garcia MD
[2017-11-30] MEDS: Levothyroxine 50 MCG TAB PO SCH (06:37)
--- NOTE | 2017-11-30 07:34 | CARD ---
APPROVED REPORT Date of service: 11/29/2017 EKG Measurement Heart [id number] <Conclusion> Sinus bradycardia Minimal voltage criteria for LVH, may be normal variant Borderline ECG
[2017-11-30] MEDS: Enoxaparin 40 mg Syringe SC SCH (08:38)
[2017-11-30] MEDS: Pantoprazole 40 mg EC Tab PO SCH (08:38)
--- NOTE | 2017-11-30 08:55 | CP.PCM.PN ---
Subjective - Date & Time of Evaluation Date of Evaluation: 11/30/17 Time of Evaluation: 08:45 - Subjective Subjective: pt doing well, only c/o urinary frequency. no repoerted burning/odor. no f/c, n /v/d. Objective - Vital Signs/Intake and Output Vital Signs (last 24 hours): Temp Pulse Resp BP Pulse Ox 97.6 F 60 20 66/43 L 98 11/30/17 08:00 11/30/17 08:42 11/30/17 08:00 11/30/17 08:42 11/30/17 08:00 - Medications Medications: Current Medications Acetaminophen (Tylenol 325mg Tab) 650 mg PO Q6 PRN PRN Reason: Pain, Mild (1-3) Albuterol (Ventolin Hfa 90 Mcg/Actuation (8 G)) 1 puff IH Q6 PRN PRN Reason: Wheezing Amlodipine Besylate (Norvasc) 10 mg PO DAILY [facility] Last Admin: 11/30/17 08:42 Dose: Not Given Atorvastatin Calcium (Lipitor) 20 mg PO HS [facility] Last Admin: 11/29/17 22:05 Dose: 20 mg Clopidogrel Bisulfate (Plavix) 75 mg PO DAILY [facility] Last Admin: 11/30/17 08:38 Dose: 75 mg Enoxaparin Sodium (Lovenox) 40 mg SC DAILY [facility] PRN Reason: Protocol Last Admin: 11/30/17 08:38 Dose: 40 mg Famotidine (Pepcid) 20 mg PO Q12 [facility] Last Admin: 11/30/17 08:38 Dose: 20 mg Home Med (Mesalamine [Lialda]) 1.2 gm PO DAILY [facility] Levothyroxine Sodium (Synthroid) 50 mcg PO DAILY@0630 [facility] Last Admin: 11/30/17 06:37 Dose: 50 mcg Montelukast Sodium (Singulair) 10 mg PO HS [facility] Last Admin: 11/29/17 22:06 Dose: 10 mg Naproxen (Naprosyn Tab) 500 mg PO BID [facility] Last Admin: 11/30/17 08:37 Dose: Not Given Pantoprazole Sodium (Protonix Ec Tab) 40 mg PO DAILY [facility] Last Admin: 11/30/17 08:38 Dose: 40 mg Tramadol HCl (Ultram) 50 mg PO Q6 PRN PRN Reason: Pain, moderate (4-7) - Labs Labs: 11/29/17 06:42 11/29/17 06:42 - Constitutional Appears: Well, Non-toxic, No Acute Distress - Head Exam Head Exam: ATRAUMATIC, NORMAL INSPECTION, NORMOCEPHALIC - Eye Exam Eye Exam: EOMI, Normal appearance, PERRL Pupil Exam: NORMAL ACCOMODATION, PERRL - ENT Exam ENT Exam: Mucous Membranes Moist, Normal Exam - Neck Exam Neck Exam: Full ROM, Normal Inspection. absent: Lymphadenopathy - Respiratory Exam Respiratory Exam: Clear to Ausculation Bilateral, NORMAL BREATHING PATTERN - Cardiovascular Exam Cardiovascular Exam: REGULAR RHYTHM, RRR, +S1, +S2. absent: Murmur - GI/Abdominal Exam GI & Abdominal Exam: Soft, Normal Bowel Sounds. absent: Tenderness - Extremities Exam Extremities Exam: Full ROM, Normal Capillary Refill, Normal Inspection. absent : Joint Swelling, Pedal Edema - Back Exam Back Exam: NORMAL INSPECTION - Neurological Exam Neurological Exam: Alert, Awake, CN II-XII Intact, Normal Gait, Oriented x3 - Psychiatric Exam Psychiatric exam: Normal Affect, Normal Mood - Skin Skin Exam: Dry, Intact, Normal Color, Warm Assessment and Plan (1) Urinary frequency Assessment & Plan: ua, c/s hydration Status: Acute (2) DVT prophylaxis Assessment & Plan: scd and ae hose lovenox Status: Acute (3) Near syncope Assessment & Plan: cardio/neuro pt/ot Status: Acute (4) Weakness Assessment & Plan: cardio/neuro pt/ot Status: Acute
[2017-11-30 10:39] LABS: BASO % 0.4 % (0.0-2.0); EOS # 1.3 K/uL (0.0-0.7); EOS % 13.7 % (0.0-4.0); HEMOGLOBIN 13.1 g/dL (12.0-16.0); LYMPH # 2.3 K/uL (1.0-4.3); MEAN CELL VOLUME 86.9 fl (81.0-99.0); MEAN CORPUSCULAR HEMOGLOBIN 29.2 pg (27.0-31.0); MEAN CORPUSCULAR HGB CONC 33.7 g/dL (33.0-37.0); MEAN PLATELET VOLUME 8.8 fl (7.2-11.7); MONO # 1.6 K/uL (0.0-0.8); MONO % 16.5 % (0.0-10.0); NEUT # 4.3 K/uL (1.8-7.0); NEUT % 45.4 % (50.0-75.0); NRBC % 0.3 % (0.0-0.0); RBC 4.47 Mil/uL (3.80-5.20); RED CELL DISTRIBUTION WIDTH 14.2 % (11.5-14.5); WHITE BLOOD COUNT 9.4 K/uL (4.8-10.8)
[2017-11-30 11:06] LABS: ALB/GLOB RATIO 1.1 (1.0-2.1); ALBUMIN 3.9 g/dL (3.5-5.0); ALT/SGPT 120 U/L (9-52); AST/SGOT 116 U/L (14-36); BLOOD UREA NITROGEN 25 mg/dl (7-17); CALCIUM 9.3 mg/dL (8.4-10.2); GFR NON-AFRICAN AMERICAN > 60
[2017-11-30 16:36] LABS: SQUAMOUS EPITHIAL 1 /hpf (0-5); URINE BILIRUBIN NEGATIVE (NEGATIVE); URINE BLOOD NEGATIVE (NEGATIVE); URINE CLARITY CLEAR (Clear); URINE COLOR YELLOW (YELLOW); URINE GLUCOSE (UA) NEG (Normal); URINE LEUKOCYTE ESTERASE NEG Leu/uL (Negative); URINE PROTEIN NEGATIVE (NEGATIVE); URINE UROBILINOGEN 0.2-1.0 mg/dL (0.2-1.0)
--- NOTE | 2017-11-30 22:12 | PN ---
DATE: 11/30/2017 SUBJECTIVE: The patient was reported to have a systolic blood pressure of 66 at one point this morning. However, the manual blood pressure following that was within normal limit. The patient denied any dizziness. The most recent blood pressure is 115/58. PHYSICAL EXAMINATION: VITAL SIGNS: Blood pressure 115/58, heart rate 60, temperature 97.9, and respirations 20. HEENT: Normocephalic. CHEST: Clear. HEART: S1 and S2, regular. ABDOMEN: Soft. EXTREMITIES: No pedal edema. LABORATORY DATA: Today's hemoglobin and hematocrit are 13.1 and 38.9. White count and platelet count are within normal limit. Today's SMA-7: Sodium 140, potassium 3.9, chloride 105, CO2 of 27, glucose 94, BUN 25, and creatinine 0.3. AST and ALT are elevated at 116 and 120 respectively. A 12-lead EKG performed yesterday revealed sinus bradycardia at the rate of 53 with minimal voltage criteria for LVH. ASSESSMENT: 1. Near syncopal episode on the most recent admission to [facility]. 2. One reading of low blood pressure, unlikely an accurate one, the patient had no symptoms at that time. 3. Sinus bradycardia. 4. Old poliomyelitis. 5. Hypothyroidism. 6. Hypoplastic posterior cerebral secretion. RECOMMENDATIONS: Continue Lipitor 20 mg once a day and Lovenox at 40 mg subcutaneously once a day. I will discontinue Norvasc. Continue Plavix at 75 mg once a day, Synthroid at 50 mcg once a day, and albuterol inhaler every 6 hours. Betito Garcia MD
[2017-12-01] MEDS: Levothyroxine 50 MCG TAB PO SCH (06:34)
[2017-12-01] MEDS: Enoxaparin 40 mg Syringe SC SCH (08:36)
[2017-12-01] MEDS: Pantoprazole 40 mg EC Tab PO SCH (08:37)
[2017-12-01] MEDS: Naproxen 500 MG TAB PO SCH ×2 (08:38→17:30)
[2017-12-02] MEDS: Levothyroxine 50 MCG TAB PO SCH (06:33)
[2017-12-02 06:45] LABS: BASO % 0.4 % (0.0-2.0); EOS # 0.7 K/uL (0.0-0.7); EOS % 9.4 % (0.0-4.0); HEMOGLOBIN 11.8 g/dL (12.0-16.0); LYMPH # 2.1 K/uL (1.0-4.3); LYMPH % 26.2 % (20.0-40.0); MEAN CORPUSCULAR HEMOGLOBIN 29.2 pg (27.0-31.0); MEAN CORPUSCULAR HGB CONC 33.6 g/dL (33.0-37.0); MEAN PLATELET VOLUME 8.5 fl (7.2-11.7); MONO # 1.3 K/uL (0.0-0.8); NEUT # 3.7 K/uL (1.8-7.0); RBC 4.05 Mil/uL (3.80-5.20); WHITE BLOOD COUNT 7.9 K/uL (4.8-10.8)
[2017-12-02 07:49] LABS: ALB/GLOB RATIO 1.1 (1.0-2.1); ALBUMIN 3.3 g/dL (3.5-5.0); ALT/SGPT 129 U/L (9-52); AST/SGOT 109 U/L (14-36); BLOOD UREA NITROGEN 25 mg/dl (7-17); CALCIUM 9.1 mg/dL (8.4-10.2); GFR NON-AFRICAN AMERICAN > 60
[2017-12-02] MEDS: Enoxaparin 40 mg Syringe SC SCH (08:33)
[2017-12-02] MEDS: Naproxen 500 MG TAB PO SCH ×2 (08:34→16:33)
[2017-12-02] MEDS: Pantoprazole 40 mg EC Tab PO SCH (08:36)
--- NOTE | 2017-12-02 08:37 | PN ---
DATE: 12/01/2017 SUBJECTIVE: The patient did report palpitation, but no dizziness. The patient still has to be assisted by two nurses to a wheelchair. She underwent physical therapy today. She denies any chest pain or shortness of breath. PHYSICAL EXAMINATION: VITAL SIGNS: Blood pressure 164/69, heart rate 62, earlier heart rate was 64; temperature 97.5, and respirations 20. HEENT: Normocephalic. CHEST: Clear. HEART: S1 and S2, regular. EXTREMITIES: Significant lower extremity atrophy related to polio. ASSESSMENT: 1. Status post near-syncopal episode. 2. Hypoplastic posterior cerebral circulation. 3. Old bilateral lower extremity poliomyelitis. 4. Sinus bradycardia. 5. Hypothyroidism. RECOMMENDATIONS: Continue Lipitor 20 mg once a day, subcutaneous Lovenox 40 mg daily, Pepcid 20 mg p.o. twice a day, Plavix 75 mg twice a day, Synthroid 50 mcg once a day, albuterol inhaler one puff every 6 hours p.r.n., Ultram 50 mg every 6 hours for moderate pain, Tylenol 650 mg p.o. every 6 hours for mild pain. Betito Garcia MD
--- NOTE | 2017-12-02 08:49 | CP.PCM.PN ---
Subjective - Date & Time of Evaluation Date of Evaluation: 12/02/17 Time of Evaluation: 08:48 - Subjective Subjective: pt offers no complaints at present. planning on going home sat no f/c, n/v/d. no urinary complaints. all bw and urinetest noted-negative cardio note appriciated comliant w/ pt/ot Objective - Vital Signs/Intake and Output Vital Signs (last 24 hours): Temp Pulse Resp BP Pulse Ox 98.2 F 55 L 20 115/75 96 12/01/17 21:26 12/01/17 21:26 12/01/17 21:26 12/01/17 21:26 12/01/17 21:26 - Medications Medications: Current Medications Acetaminophen (Tylenol 325mg Tab) 650 mg PO Q6 PRN PRN Reason: Pain, Mild (1-3) Albuterol (Ventolin Hfa 90 Mcg/Actuation (8 G)) 1 puff IH Q6 PRN PRN Reason: Wheezing Atorvastatin Calcium (Lipitor) 20 mg PO [facility] Last Admin: 12/01/17 21:26 Dose: 20 mg Clopidogrel Bisulfate (Plavix) 75 mg PO DAILY [facility] Last Admin: 12/02/17 08:34 Dose: 75 mg Enoxaparin Sodium (Lovenox) 40 mg SC DAILY [facility] PRN Reason: Protocol Last Admin: 12/02/17 08:33 Dose: 40 mg Famotidine (Pepcid) 20 mg PO Q12 [facility] Last Admin: 12/02/17 08:34 Dose: 20 mg Home Med (Mesalamine [Lialda]) 1.2 gm PO DAILY [facility] Levothyroxine Sodium (Synthroid) 50 mcg PO DAILY@0630 [facility] Last Admin: 12/02/17 06:33 Dose: 50 mcg Montelukast Sodium (Singulair) 10 mg PO HS [facility] Last Admin: 12/01/17 21:27 Dose: Not Given Naproxen (Naproxen) 500 mg PO BID [facility] Last Admin: 12/02/17 08:34 Dose: Not Given Pantoprazole Sodium (Protonix Ec Tab) 40 mg PO DAILY [facility] Last Admin: 12/02/17 08:36 Dose: 40 mg Tramadol HCl (Ultram) 50 mg PO Q6 PRN PRN Reason: Pain, moderate (4-7) - Labs Labs: 12/02/17 06:20 12/02/17 06:20 - Constitutional Appears: Well, Non-toxic, No Acute Distress - Head Exam Head Exam: ATRAUMATIC, NORMAL INSPECTION, NORMOCEPHALIC - Eye Exam Eye Exam: EOMI, Normal appearance, PERRL Pupil Exam: NORMAL ACCOMODATION, PERRL - ENT Exam ENT Exam: Mucous Membranes Moist, Normal Exam - Neck Exam Neck Exam: Full ROM, Normal Inspection. absent: Lymphadenopathy - Respiratory Exam Respiratory Exam: Clear to Ausculation Bilateral, NORMAL BREATHING PATTERN - Cardiovascular Exam Cardiovascular Exam: REGULAR RHYTHM, RRR, +S1, +S2. absent: Murmur - GI/Abdominal Exam GI & Abdominal Exam: Soft, Normal Bowel Sounds. absent: Tenderness - Extremities Exam Extremities Exam: Full ROM, Normal Capillary Refill, Normal Inspection. absent : Joint Swelling, Pedal Edema - Back Exam Back Exam: NORMAL INSPECTION - Neurological Exam Neurological Exam: Alert, Awake, CN II-XII Intact, Normal Gait, Oriented x3 - Psychiatric Exam Psychiatric exam: Normal Affect, Normal Mood - Skin Skin Exam: Dry, Intact, Normal Color, Warm Assessment and Plan (1) Urinary frequency Status: Acute (2) DVT prophylaxis Status: Acute (3) Near syncope Status: Acute (4) Weakness Status: Acute - Assessment and Plan (Free Text) Assessment: (1) Urinary frequency Assessment & Plan: ua, c/s hydration no further complaints. all studies negative Status: Acute (2) DVT prophylaxis Assessment & Plan: scd and ae hose lovenox Status: Acute (3) Near syncope Assessment & Plan: cardio/neuro pt/ot Status: Acute (4) Weakness Assessment & Plan: cardio/neuro pt/ot Status: Acute for dc sat
--- NOTE | 2017-12-02 18:16 | PN ---
DATE: 12/02/2017 SUBJECTIVE: The patient complains of mild palpitation, no dizziness. She underwent physical therapy on a wheel chair. PHYSICAL EXAMINATION: VITAL SIGNS: Blood pressure 134/72, heart rate 60, temperature 97.2, respirations 20. HEENT: Normocephalic. CHEST: Clear. HEART: S1 and S2 regular. EXTREMITIES: No edema. Significant leg related to old polio. LABORATORY DATA: Hemoglobin and hematocrit 11.8 and 35.2. White count and platelet count are within normal limit. Today's SMA-7; sodium 140, potassium 4.7, chloride 107, CO2 of 30, glucose 89, BUN 25, creatinine 0.3. ASSESSMENT: 1. Status post near syncopal episode. 2. Sinus bradycardia. 3. Hypothyroidism. 4. Old poliomyelitis of both lower extremities. 5. Hypoplastic posterior cerebral circulation. RECOMMENDATIONS: Continue Synthroid at 50 mcg once a day, Singulair 10 mg once a day, Plavix 75 mg once a day, Lovenox 40 mg subcutaneously daily, Lipitor 20 mg once a day, and the most recent TSH level is from today and is within normal limits at 3.74. Betito Garcia MD
[2017-12-03] MEDS: Levothyroxine 50 MCG TAB PO SCH (05:45)
[2017-12-03] MEDS: Enoxaparin 40 mg Syringe SC SCH (08:08)
[2017-12-03] MEDS: Pantoprazole 40 mg EC Tab PO SCH (08:09)
[2017-12-03] MEDS: Naproxen 500 MG TAB PO SCH ×2 (08:54→16:52)
--- NOTE | 2017-12-03 18:20 | PN ---
DATE: 12/03/2017 SUBJECTIVE: The patient denies chest pain. She did report palpitations, but no dizziness and no reported . PHYSICAL EXAMINATION: VITAL SIGNS: Blood pressure 150/70, heart rate 58, temperature 98.1, respirations 20. HEENT: Normocephalic. CHEST: Clear. HEART: S1 and S2 regular. EXTREMITIES: Significant muscle wasting from old polio. ASSESSMENT: 1. Recent near syncope. 2. Old poliomyelitis. The patient is wheelchair bound. 3. Sinus bradycardia. 4. Hypothyroidism. 5. Hyperlipidemia. 6. Hypoplastic posterior cerebral circulation. RECOMMENDATIONS: Continue Lovenox at 40 mg subcutaneously daily, Plavix 75 mg once a day, Pepcid 20 mg p.o. twice a day, Singulair 10 mg once a day, Synthroid 50 mcg once a day, albuterol inhaler every 6 hours p.r.n. for wheezing, Ultram 50 mg p.o. every 6 hours. Betito Garcia MD
[2017-12-04] MEDS: Levothyroxine 50 MCG TAB PO SCH (06:28)
[2017-12-04 08:02] VITALS: BP 156/76; PULSE 52; TEMP 97.2; O2SAT 99
--- NOTE | 2017-12-04 08:02 | CP.PCM.DIS ---
Provider - Provider Date of Admission: 11/27/17 18:39 Attending physician: Cherelle Gerber MD Time Spent in preparation of Discharge (in minutes): 15 Diagnosis - Discharge Diagnosis (1) Urinary frequency Status: Acute (2) DVT prophylaxis Status: Acute (3) Near syncope Status: Acute (4) Weakness Status: Acute Hospital Course - Lab Results Lab Results: Micro Results 11/30/17 16:26 Urine,Clean Catch Urine Culture - Final No Growth (<1,000 CFU/ML) Most Recent Lab Values WBC 7.9 K/uL (4.8-10.8) 12/02/17 06:20 RBC 4.05 Mil/uL (3.80-5.20) 12/02/17 06:20 Hgb 11.8 g/dL (12.0-16.0) L 12/02/17 06:20 Hct 35.2 % (34.0-47.0) 12/02/17 06:20 MCV 87.0 fl (81.0-99.0) 12/02/17 06:20 MCH 29.2 pg (27.0-31.0) 12/02/17 06:20 MCHC 33.6 g/dL (33.0-37.0) 12/02/17 06:20 RDW 14.0 % (11.5-14.5) 12/02/17 06:20 Plt Count 267 K/uL (130-400) 12/02/17 06:20 MPV 8.5 fl (7.2-11.7) 12/02/17 06:20 Neut % (Auto) 47.0 % (50.0-75.0) L 12/02/17 06:20 Lymph % (Auto) 26.2 % (20.0-40.0) 12/02/17 06:20 [place] % (Auto) 17.0 % (0.0-10.0) H 12/02/17 06:20 Eos % (Auto) 9.4 % (0.0-4.0) H 12/02/17 06:20 Baso % (Auto) 0.4 % (0.0-2.0) 12/02/17 06:20 Neut # (Auto) 3.7 K/uL (1.8-7.0) 09/13/18 06:20 Lymph # (Auto) 2.1 K/uL (1.0-4.3) 12/02/17 06:20 [place] # (Auto) 1.3 K/uL (0.0-0.8) H 12/02/17 06:20 Eos # (Auto) 0.7 K/uL (0.0-0.7) 12/02/17 06:20 Baso # (Auto) 0.0 K/uL (0.0-0.2) 12/02/17 06:20 Sodium 140 mmol/l (132-148) 12/02/17 06:20 Potassium 4.7 MMOL/L (3.6-5.0) 12/02/17 06:20 Chloride 107 mmol/L (98-107) 12/02/17 06:20 Carbon Dioxide 30 mmol/L (22-30) 12/02/17 06:20 Anion Gap 8 (10-20) L 12/02/17 06:20 BUN 25 mg/dl (7-17) H 12/02/17 06:20 Creatinine 0.3 mg/dl (0.7-1.2) L 12/02/17 06:20 Est GFR ( Amer) > 60 12/02/17 06:20 Est GFR (Non-Af Amer) > 60 12/02/17 06:20 Random Glucose 89 mg/dL (65-105) 12/02/17 06:20 Calcium 9.1 mg/dL (8.4-10.2) 12/02/17 06:20 Phosphorus 3.0 mg/dl (2.5-4.5) 11/30/17 08:50 Magnesium 2.0 MG/DL (1.6-2.3) 11/30/17 08:50 Total Bilirubin 0.4 mg/dl (0.2-1.3) 12/02/17 06:20 AST 109 U/L (14-36) H 12/02/17 06:20 ALT 129 U/L (9-52) H 12/02/17 06:20 Alkaline Phosphatase 79 U/L (38-126) 12/02/17 06:20 Total Protein 6.4 G/DL (6.3-8.2) 12/02/17 06:20 Albumin 3.3 g/dL (3.5-5.0) L 12/02/17 06:20 Globulin 3.1 gm/dL (2.2-3.9) 12/02/17 06:20 Albumin/Globulin Ratio 1.1 (1.0-2.1) 12/02/17 06:20 TSH 3rd Generation 3.74 mIU/ML (0.46-4.68) 12/02/17 06:20 Urine Color Yellow (YELLOW) 11/30/17 16:26 Urine Clarity Clear (Clear) 11/30/17 16:26 Urine pH 5.0 (5.0-8.0) 11/30/17 16:26 Ur Specific [place] 1.018 (1.003-1.030) 11/30/17 16:26 Urine Protein Negative mg/dL (NEGATIVE) 11/30/17 16:26 Urine Glucose (UA) Neg mg/dL (Normal) 11/30/17 16:26 Urine Ketones Negative mg/dL (NEGATIVE) 11/30/17 16:26 Urine Blood Negative (NEGATIVE) 11/30/17 16:26 Urine Nitrate Negative (NEGATIVE) 11/30/17 16:26 Urine Bilirubin Negative (NEGATIVE) 11/30/17 16:26 Urine Urobilinogen 0.2-1.0 mg/dL (0.2-1.0) 11/30/17 16:26 Ur Leukocyte Esterase Neg Nathaniel/uL (Negative) 11/30/17 16:26 Urine RBC (Auto) 2 /hpf (0-3) 11/30/17 16:26 Urine Microscopic WBC 1 /hpf (0-5) 11/30/17 16:26 Ur Squamous Epith Cells 1 /hpf (0-5) 11/30/17 16:26 - Hospital Course Hospital Course: pt/ot Discharge Exam - Head Exam Head Exam: ATRAUMATIC, NORMAL INSPECTION, NORMOCEPHALIC - Eye Exam Eye Exam: EOMI, Normal appearance, PERRL Pupil Exam: NORMAL ACCOMODATION, PERRL - Respiratory Exam Respiratory Exam: Clear to PA & Lateral, NORMAL BREATHING PATTERN, UNREMARKABLE - Cardiovascular Exam Cardiovascular Exam: REGULAR RHYTHM, RRR, +S1, +S2 - GI/Abdominal Exam GI & Abdominal Exam: Normal Bowel Sounds, Soft, Unremarkable - Extremities Exam Extremities exam: full ROM, normal capillary refill, normal inspection, pedal pulses present - Neurological Exam Neurological exam: Alert, CN II-XII Intact, Normal Gait, Oriented x3, Reflexes Normal - Psychiatric Exam Psychiatric exam: Normal Affect, Normal Mood - Skin Skin Exam: Dry, Intact, Normal Color, Warm Discharge Plan - Discharge Medications Prescriptions: Famotidine [Pepcid] 20 mg PO Q12 #60 tab Naproxen 500 mg PO BID #60 tab - Follow Up Plan Condition: GOOD Disposition: HOME/ ROUTINE Additional Instructions: final dx weakness, near syncope doing well. meds erx, f/u rmg wednesday, rted prn no complaints. no distress. no f/c, n/v/d.
[2017-12-04] MEDS: Pantoprazole 40 mg EC Tab PO SCH (08:18)
[2017-12-04] MEDS: Enoxaparin 40 mg Syringe SC SCH (08:19)
[2017-12-04] MEDS: Naproxen 500 MG TAB PO SCH (08:23)
== END 2017-12-04 12:15 | disposition home health service (06) | DRG 308 ==
LOC: H.TCU 18:39
PROVIDERS: ADMIT Family Medicine; ATTEND Family Medicine
PROC: F07Z9FZ Gait Training/Functional Ambulation Treatment using Assistive, Adaptive, Supportive or Protective Equipment (ICD-10-PCS; principal; 2017-11-27)
PROC: F08Z4FZ Home Management Treatment using Assistive, Adaptive, Supportive or Protective Equipment (ICD-10-PCS; 2017-11-27)
PROC: F07M6FZ Therapeutic Exercise Treatment of Musculoskeletal System - Whole Body using Assistive, Adaptive, Supportive or Protective Equipment (ICD-10-PCS; 2017-11-28)
DX: R00.1 Bradycardia, unspecified (principal); Q04.3 Other reduction deformities of brain; R53.1 Weakness; Z86.12 Personal history of poliomyelitis; M62.58 Muscle wasting and atrophy, not elsewhere classified, other site; E03.9 Hypothyroidism, unspecified; I35.1 Nonrheumatic aortic (valve) insufficiency; E78.5 Hyperlipidemia, unspecified; E78.00 Pure hypercholesterolemia, unspecified; I10 Essential (primary) hypertension; J45.909 Unspecified asthma, uncomplicated; M81.0 Age-related osteoporosis without current pathological fracture; K29.70 Gastritis, unspecified, without bleeding; M19.90 Unspecified osteoarthritis, unspecified site; R35.0 Frequency of micturition; Z99.3 Dependence on wheelchair; Z88.0 Allergy status to penicillin; Z90.49 Acquired absence of other specified parts of digestive tract